=== PATIENT | male | born 1970 | race Caucasian/White ===

== ENCOUNTER 2023-03-11 20:51 | Emergency (ER) | payer OTHER, SELFPAY ==
--- NOTE | ~2023-03-11 | XR_ITS ---
EXAMINATION: XR chest 2V DATE: 03/11/2023 21:16 INDICATION: Cough. TECHNIQUE: Frontal and lateral views of the chest were obtained. COMPARISON: CT abdomen and pelvis 05/30/2018 FINDINGS: There is no pneumonia, pleural effusion, or pneumothorax. The heart size is normal. IMPRESSION: 1. No acute cardiopulmonary disease. Reviewed, dictated and finalized at location E. UMER PRODUCT ADVISOR
[2023-03-11 20:53] VITALS: BP 163/93; PULSE 88; RESP 20; TEMP 36.1; O2SAT 96
[2023-03-11 21:39] LABS: Influenza A QL RT-PCR Negative (Negative); Influenza B QL RT-PCR Negative (Negative); RSV RNA, RT-PCR Negative (Negative); SARS-CoV-2 RNA PCR Negative (Negative)
--- NOTE | 2023-03-11 23:04 | ED.URI ---
HPI - URI/Sore Throat General Chief Complaint: Upper Respiratory Infection Stated Complaint: chest congestion, cough Time Seen by Provider: 03/11/23 22:25 History of Present Illness HPI Narrative: 52 y/o M with a hx of HTN reports for evaluation for sinus congestion, chest congestion, and productive cough x5-7 days. Pt states today it feels like there is more congestion in his lungs and feels like he cannot fully cough it up. He denies sensation of a food bolus. He denies fever, otalgia, sore throat, abdominal pain, n/v/d. The patient is also reporting pain to his L inferior lateral ribs that started today, is only present with coughing, and is pinpoint and nonradiating. States he believes he pulled a rib from coughing. No aggravating or alleviating factors other than deep inspiration. No associated diaphoresis, n/v. He is not a smoker. No hx of asthma or COPD Related Data Allergies Allergy/AdvReac Type Severity Reaction Status Date / Time No Known Allergies Allergy Unverified 03/11/23 20:58 Review of Systems Review of Systems: CONSTITUTIONAL: Denies fever, chills, or sweats. EYES: Denies visual changes, redness, or discharge. ENT: See HPI CARDIOVASCULAR: See HPI RESPIRATORY: See HPI GASTROINTESTINAL: Denies abdominal pain, nausea, vomiting, or diarrhea. GENITOURINARY: Denies dysuria or hematuria. SKIN: Denies rash or itching. MUSCULOSKELETAL: Denies back pain, joint pain, or myalgia. NEUROLOGIC: Denies headache, numbness, or weakness. PSYCHIATRIC: Denies anxiety or depression. Exam Narrative: GENERAL: Well-appearing, well-nourished, and in no acute distress. Patient resting comfortably in exam bed. He is pleasant and conversational. HEAD: Normocephalic, atraumatic. EYES: PERRLA and EOMI. ENT: Nares clear, no rhinorrhea or epistaxis. Mucous membranes moist. Bilateral TMs are horne nonbulging. Normal canals. Posterior pharynx with mild erythema. No tonsillar hypertrophy or exudates. Uvula is midline. Postnasal drainage present. NECK: Supple. CHEST: Clear to auscultation. No respiratory distress. HEART: Regular rate and rhythm. No murmur heard. Normal peripheral pulses. ABDOMEN: Soft, nontender, nondistended, normal active bowel sounds. EXTREMITIES: Normal range of motion. No edema. SKIN: Warm, dry, no rash. NEURO: No focal deficits. Alert and oriented x3 Course Vital Signs Vital signs: Vital Signs Temperature 97 F L 03/11/23 20:53 Pulse Rate 88 03/11/23 20:53 Respiratory Rate 20 03/11/23 20:53 Blood Pressure 163/93 H 03/11/23 20:53 Pulse Oximetry 96 03/11/23 20:53 Oxygen Delivery Room Air 03/11/23 20:53 Temperature 97.8 F 03/11/23 23:26 Pulse Rate 91 03/11/23 23:26 Respiratory Rate 22 H 03/11/23 23:26 Blood Pressure 146/88 H 03/11/23 23:26 Pulse Oximetry 96 03/11/23 23:26 Oxygen Delivery Room Air 03/11/23 23:25 MDM - URI/Sore Throat MDM Narrative Medical decision making narrative: 52-year-old male reports for evaluation for sinus and chest congestion for the past 5-7 days. He is also reporting pinpoint left inferior lateral rib pain that he is attributing to a pulled muscle from coughing. Vital significant for blood pressure 163/93. He is afebrile and satting 96% on room air. No respiratory distress. Exam significant for the above. Lungs sounds are clear. COVID, flu and RSV are negative. Chest x-ray shows no acute cardiopulmonary abnormality. Labs and imaging discussed with the patient. Shared decision making regarding obtaining further workup including cardiac workup, VTE and other given left-sided chest pain. He declines and states he would like to go home. Chest pain does not seem cardiac in nature given it is pinpoint, non radiatin, only present with deep inspiration. I discussed strict ED return precautions including signs/symptoms of ACS, PE, PNA, other and encouraged close PCP follow up. Patient is agreeable to plan and voiced his understanding.
[2023-03-11 23:25] VITALS: O2SAT 96
[2023-03-11 23:26] VITALS: BP 146/88; PULSE 91; RESP 22; TEMP 36.6; O2SAT 96
== END 2023-03-11 23:27 | disposition home or self-care (01) ==
PROVIDERS: Student in an Organized Health Care Education/Training Program; Emergency Provider Physician Assistant
DX: J06.9 Acute upper respiratory infection, unspecified (principal); R07.89 Other chest pain; Z20.822 Contact with and (suspected) exposure to COVID-19
CPT/HCPCS: 71046; 87637; 99283

== ENCOUNTER 2024-06-24 15:57 | Emergency (ER) | payer OTHER, SELFPAY ==
--- NOTE | ~2024-06-24 | XR_ITS ---
HISTORY: [email or web address] COMPARISON: None TECHNIQUE: 3 views of the left ankle were performed FINDINGS: No acute fracture or dislocation. No significant soft tissue swelling. The ankle mortise is preserved. Bone mineralization is age-appropriate. Ossification of the insertion of the Achilles tendon is present. IMPRESSION: Degenerative disease without acute fracture Reviewed, dictated and finalized at location A.
--- NOTE | ~2024-06-24 | XR_ITS ---
HISTORY: [email or web address] COMPARISON: None TECHNIQUE: 3 views of the left foot were performed. FINDINGS: No acute fracture or dislocation is appreciated. No significant degenerative disease is noted. The base of the fifth metatarsal is intact. No calcaneal spur is noted. Ossification of the insertion of the Achilles tendon is present. No significant soft tissue swelling is present. IMPRESSION: Degenerative disease without acute fracture identified. Reviewed, dictated and finalized at location A.
--- OUTSIDE RECORDS SUMMARY | 2024-06-24 16:00 | XMS_ITS | Clinical Summary ---
Author Organization [facility] Address [facility] [place] [address] Care Team Providers Care Electrical Instrument Maker Name Role Phone None, Provider MD Primary Care Provider Unavaila ble Allergies No known active allergies Medications anastrozole (ARIMIDEX) 1 MG tablet TAKE 1 TABLET BY MOUTH 3 TIMES PER WEEK 01/12/20 24 Active propranolol (INDERAL) 20 MG tablet Take 1 tablet (20 mg total) by mouth 3 (three) times daily. 01/06/20 24 Active testosterone cypionate (DEPO TESTOSTERONE) 200 MG/ML injection INJECT 1.25ML INTRAMUSCULARLY EVERY 7 DAYS *BOTTLE HAS TO BE REPLACED AFTER 28 DAYS 01/25/20 24 Active azithromycin (ZITHROMAX) 250 MG tabletIndicati ons:Non-recurr ent acute serous otitis media of both ears,Bronchiti s Take 2 tablets by mouth on day one then 1 daily for four days. 6 tablet 02/24/20 24 Active Active Problems No known active problems Immunizations Immunization Administration Dates Next Due Influenza (Generic) 03/09/2013 Social History Tobacco Use Types Packs/Day Years Used Date Smoking Tobacco: Never Smokeless Tobacco: Never Tobacco Cessation:Counseling Given: Not Answered Alcohol Use Standard Drinks/Week Comments Not Currently 0 (1 standard drink = 0.6 oz pur e alcohol) Sex and Gender Information Value Date Recorded Sex Assigned at Not on file Legal Sex Male 7:45 PM CDT Gender Identity Not on file Sexual Orientation Not on file Last Filed Vital Signs Vital Sign Reading Time Taken Comments Blood Pressure 136/85 02/24/2024 1:33 PM TRANSFER AND PUMPHOUSE OPERATOR Pulse 73 02/24/2024 1:33 PM TRANSFER AND PUMPHOUSE OPERATOR Temperature 37.2 C (98.9 F) 02/24/2024 1:33 PM TRANSFER AND PUMPHOUSE OPERATOR Respiratory Rate 18 02/24/2024 1:33 PM TRANSFER AND PUMPHOUSE OPERATOR Oxygen Saturation 96% 02/24/2024 1:33 PM TRANSFER AND PUMPHOUSE OPERATOR Inhaled Oxygen Concentration - - Weight 133.5 kg (294 lb 6.4 oz) 02/24/2024 1:33 PM TRANSFER AND PUMPHOUSE OPERATOR Height 180.3 cm (5' 11 ) 02/24/2024 1:33 PM TRANSFER AND PUMPHOUSE OPERATOR Body Mass Index 41.06 02/24/2024 1:33 PM TRANSFER AND PUMPHOUSE OPERATOR Plan of Treatment Health Maintenance Due Date Last Done Comments Colorectal Cancer Screening Colonoscopy (10 Years) 1971 Annual Physical 1974 Hepatitis C 1989 DTaP, Tdap and Td Vaccines ( 1 - Tdap) 1990 Hepatitis B Vaccines (1 of 3 - 19+ 3-dose series) 1990 Pneumococcal Vaccine: 50+ Years (1 of 1 - PCV) 2021 Zoster Vaccines (1 of 2) 2021 COVID-19 Vaccine (3 - 2023-2 5 season) 2023 03/03/2021, 06/16/2020 PHQ-2 (Physician [place]) 03/09/2024 Meningococcal B Vaccine Aged Out No l onger eligible based on patient's age to complete this topic Meningococcal Vaccine Aged Out No kaveh fifi eligible based on patient's age to complete this topic RSV Immunizations Under 20 Months Aged Out No longer eligible b ased on patient's age to complete this topic Insurance Care Teams Electrical Instrument Maker Relationship Specialty Start Date End Date None, Provider, MD PCP - General UNKNOWN PHYSICIAN SPECIALTY 02/24/24
--- OUTSIDE RECORDS SUMMARY | 2024-06-24 16:00 | XMS_ITS | Continuity of Care Document ---
Author Organization [facility] Address [address] [place] [address] Phone Care Team Providers Care Pcas Name Role Phone Everardo Soler MD Unavailable Unavailable Advance Directives Directive Yes / No Effective Date File Name No Information Encounters Encounter Description Practice Location Reason(s) For Visit Diagnoses Date Provider Providers Copied on Encounter [facility], [address], [place], [place], [id number], [place] tel:[phone] [facility] No Information Ryder Mcgee. [address], [address], [place], [place], [address] , [place]. tel:[phone] Family History Family Member Type Diagnosis Age At Onset No Information Payers Payer name Insurance type Covered republican ID Authoriza tion(s) No Information Social History Type Description Quantity Date Captured Comments Sex Male Smoking Status No Information Chief Complaint And Reason For Visit No Information Reason For Referral Reason For Referral No Information History Of Present Illness Encounter Date Complaint History Of Prese nt Illness No Information Functional Status Date Functional Assessmen t No Information Instructions Date Instruction Additional Infor mation No Information Assessments Type Assessment Date No Information Patient Care Teams Name Effective Dates (start - stop) Status Members No Information
--- OUTSIDE RECORDS SUMMARY | 2024-06-24 16:00 | XMS_ITS | Clinical Summary ---
Author Organization [facility] Address [address] [place] [address] Care Team Providers Care Fractionating Still Operator Name Role Phone Unknown, Provider Primary Care Provider Unavaila ble Source Comments [facility],non-owned Affiliates and Associated Physician Practices is amultiple site organization consisting of ambulatory clinics and hospital sitesin [place], [place], [place] and [place]. This disclosure is being madepursuant to the Care Everywhere program and may not contain all information available regarding this patient. Last updated 17.[facility] Allergies No known active allergies Medications * Be aware that medications may not be up to date on this document. Alwaysverify current medications with the patient. clomiPHENE (CLOMID) 50 MG tablet Take 50 mg by mouth once daily Active Ergocalciferol 10 MCG (400 UNIT) Active testosterone 0.2% in DERMABASE OINT Apply to affected area once daily Active Other Active Social History Tobacco Use Types Packs/Day Years Used Date Smoking Tobacco: Never Smokeless Tobacco: Never Sex and Gender Information Value Date Recorded Sex Assigned at Not on file Legal Sex Male 7:59 AM SCHOOL CURRICULUM DEVELOPER Gender Identity Not on file Sexual Orientation Not on file Last Filed Vital Signs Vital Sign Reading Time Taken Comments Blood Pressure 122/82 05/09/2019 9:40 AM SCHOOL CURRICULUM DEVELOPER Pulse 93 05/09/2019 9:40 AM SCHOOL CURRICULUM DEVELOPER Temperature 37.3 C (99.2 F) 05/09/2019 9:40 AM SCHOOL CURRICULUM DEVELOPER Respiratory Rate 16 05/09/2019 9:40 AM SCHOOL CURRICULUM DEVELOPER Oxygen Saturation 98% 05/09/2019 9:40 AM SCHOOL CURRICULUM DEVELOPER Inhaled Oxygen Concentration - - Weight 129.7 kg (286 lb) 05/09/2019 9:40 AM SCHOOL CURRICULUM DEVELOPER Height 180.3 cm (5' 11 ) 05/09/2019 9:40 AM SCHOOL CURRICULUM DEVELOPER Body Mass Index 39.89 05/09/2019 9:40 AM SCHOOL CURRICULUM DEVELOPER Plan of Treatment Health Maintenance Due Date Last Done Comments COLOGUARD (AGES 45-75) - COL ON CA SCREENING 1971 COLON MONITORING 1971 COLONOSCOPY - COLON CA SCREENING 1971 CT COLONOGRAPHY - COLON CA SCREENING 1971 Colorectal Cancer Screening 1971 FIT - COLON CA SCREENING 1971 FLEX SIG - COLON CA SCREENING 1971 LIPID TESTING 1971 HIV SCREENING 1986 HEPATITIS C SCREENING 04/18/1989 DTAP/TDAP/TD VACCINES (1 - Tdap) 1990 HEPATITIS B VACCINE (1 of 3 - 19+ 3-dose series) 1990 SCREENING FOR DIABETES 05/09/2019 PNEUMOCOCCAL VACCINE 50+ (1 of 1 - PCV) 2021 ZOSTER VACCINE (1 of 2) 2021 COVID-19 VACCINE (1 - 2023-2 5 season) 2023 DEPRESSION SCREENING 03/09/2024 INFLUENZA VACCINE (Season Ended) 2024 HIB VACCINE Aged Out No longer eligi ble based on patient's age to complete this topic HPV VACCINE Aged Out No longer eligi ble based on patient's age to complete this topic MENINGOCOCCAL (Group B) VACC INE SHARED DECISION-MAKING Aged Out No longer eligibl e based on patient's age to complete this topic MENINGOCOCCAL GROUPS A/C/Y/W VACCINE Aged Out No longer eligible b ased on patient's age to complete this topic Insurance [facility] Address: [facility] [id number] [place] [phone] Care Teams Fractionating Still Operator Relationship Specialty Start Date End Date Unknown, Provider PCP - General 05/09/19
--- OUTSIDE RECORDS SUMMARY | 2024-06-24 16:00 | XMS_ITS | Patient Health Record ---
Author Organization [employer] Address [address] [place]. [address] [place] [address] Care Team Providers Care Injection Molding Machine Tender Name Role Phone Dk Callejas MD Primary Care Provider UnavailJerome Jackson Unavailable [phone] Reason For Referral No Information Plan Of Treatment No Information Insurance Providers Payer Name Payer Address Payer Phone Subscriber Number Group Number Insured Name Patient Relationship to Insured Coverage Start Date Coverage End Date [employer] Open Access Plus [address] [place] [address] [phone] [id number] Jim Carter Self - patient is the insured
--- OUTSIDE RECORDS SUMMARY | 2024-06-24 16:00 | XMS_ITS | Clinical Summary ---
Author Organization [facility] [place] [address] Care Team Providers Care Mainframe Consultant Name Role Phone Unavailable Primary Care Provider Unavailabl e Allergies No known active allergies Medications testosterone cypionate (DEPO-TESTOSTERO NE) 200 mg/mL Oil INJECT 1ML IN THE MUSCLE EVERY WEEK 04/29/2020 Active anastrozole (ARIMIDEX) 1 mg tablet TAKE ONE TABLET BY MOUTH 3 DAYS EACH WEEK 05/28/2022 Active clomiPHENE citrate (CLOMID) 50 mg tablet Take 50 mg by mouth. 03/06/2020 Active propranoloL (INDERAL) 20 mg tablet 06/19/2022 Active methocarbamoL (ROBAXIN) 500 mg tablet TAKE 1 TABLET BY MOUTH FOUR TIMES A DAY X10 DAYS 40 Tablet 08/17/2023 Active Active Problems No known active problems Encounters Date Type Department Care Team Description 05/25/2024 External Device Data [facility] ABSTRACTION Provider, Abstract 05/18/2024 External Device Data [facility] Provider, Abstract 05/17/2024 External Device Data [facility] Provider, Abstract 05/14/2024 External Device Data [facility] Provider, Abstract 05/13/2024 External Device Data [facility] Provider, Abstract 05/03/2024 External Device Data [facility]CTION Provider, Abstract 04/12/2024 External Device Data [facility]CTION Provider, Abstract 04/12/2024 External Device Data [facility] ABSTRACTION Provider, Abstract 04/12/2024 External Device Data [facility] ABSTRACTION Provider, Abstract from Last 3 Months Social History Tobacco Use Types Packs/Day Years Used Date Smoking Tobacco: Never Smokeless Tobacco: Never Alcohol Use Standard Drinks/Week Comments Yes 0 (1 standard drink = 0.6 oz pur e alcohol) Occasional Sex and Gender Information Value Date Recorded Sex Assigned at Not on file Legal Sex Male 12:39 PM MECHANICAL MANAGER Gender Identity Not on file Sexual Orientation Not on file Last Filed Vital Signs Vital Sign Reading Time Taken Comments Blood Pressure 132/87 06/21/2022 9:12 AM CDT Pulse 68 06/21/2022 9:12 AM CDT Temperature - - Respiratory Rate - - Oxygen Saturation - - Inhaled Oxygen Concentration - - Weight 129.3 kg (285 lb) 08/17/2023 3:50 PM CDT Height 180.3 cm (5' 11 ) 08/17/2023 3:50 PM CDT Body Mass Index 39.75 08/17/2023 3:50 PM CDT Plan of Treatment Health Maintenance Due Date Last Done Comments Pre-Diabetes and Diabetes Screening 1971 DTAP/TDAP/TD VACCINES (1 - Tdap) 1990 HEPATITIS B VACCINES (1 of 3 - 19+ 3-dose series) 1990 COLORECTAL SCREENING 2016 Colorectal Cancer Screening 2016 FIT-DNA Q 3 years 2016 FIT/FOBT Q 1 year 2016 Flex Sig/CT Colonography Q 5 years 2016 ZOSTER VACCINE (1 of 2) 2021 INFLUENZA VACCINE (#1) 2023 03/09/2013 PNEUMOCOCCAL VACCINE 0-49 YEARS Aged Out No longer eligible based on patient's age to complete this topic [facility]
[2024-06-24 16:02] VITALS: BP 159/97; PULSE 86; RESP 18; TEMP 37; O2SAT 98
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
--- OUTSIDE RECORDS SUMMARY | 2024-06-24 18:00 | XMS_ITS | Clinical Summary ---
Author Organization [facility] [place] [address] Care Team Providers Care Sack Repairer Name Role Phone Unavailable Primary Care Provider [...] on file Legal Sex Male 12:39 PM DIE MAINTENANCE Gender Identity Not on file Sexual Orientation [...] patient's age to complete this topic [facility]
--- OUTSIDE RECORDS SUMMARY | 2024-06-24 18:00 | XMS_ITS | Continuity of Care Document ---
Author Organization [facility] Address [address] [place] [address] Phone Care Team Providers Care Grain Manager Name Role Phone Everardo Soler MD Unavailable Unavailable Advance Directives Directive Yes / No Effective Date File Name No Information Encounters Encounter Description Practice Location Reason(s) For Visit Diagnoses Date Provider Providers Copied on Encounter [facility], [address] [address] [facility], [place], [place], [id number], [place] tel:[phone] [facility] No Information Ryder Mcgee. [address], [address], [place], [place], [address] , [place]. tel:[phone] Family History Family Member Type Diagnosis Age At Onset No Information Payers Payer name Insurance type Covered alliance party ID Authoriza tion(s) No Information Social History [...]
--- OUTSIDE RECORDS SUMMARY | 2024-06-24 18:00 | XMS_ITS | Clinical Summary ---
Author Organization [facility] Address [facility] [place] [address] Care Team Providers Care Sod Farmer Name Role Phone None, Provider MD Primary [...] Comments Blood Pressure 136/85 02/24/2024 1:33 PM RADIO DISPATCHER Pulse 73 02/24/2024 1:33 PM RADIO DISPATCHER Temperature 37.2 C (98.9 F) 02/24/2024 1:33 PM RADIO DISPATCHER Respiratory Rate 18 02/24/2024 1:33 PM RADIO DISPATCHER Oxygen Saturation 96% 02/24/2024 1:33 PM RADIO DISPATCHER Inhaled Oxygen Concentration - - Weight 133.5 kg (294 lb 6.4 oz) 02/24/2024 1:33 PM RADIO DISPATCHER Height 180.3 cm (5' 11 ) 02/24/2024 1:33 PM RADIO DISPATCHER Body Mass Index 41.06 02/24/2024 1:33 PM RADIO DISPATCHER Plan of Treatment Health Maintenance Due Date [...] 5 season) 2023 03/03/2021, 06/16/2020 PHQ-2 (Physician [place]) 03/09/2024 Meningococcal B Vaccine Aged Out No l onger eligible based on patient's age to complete this topic Meningococcal Vaccine Aged Out No kaveh fifi eligible based on patient's age to complete this topic RSV Immunizations Under 20 Months Aged Out No longer eligible b ased on patient's age to complete this topic Insurance Care Teams Sod Farmer Relationship Specialty Start Date End Date None, Provider, MD PCP - General UNKNOWN PHYSICIAN SPECIALTY 02/24/24
--- OUTSIDE RECORDS SUMMARY | 2024-06-24 18:00 | XMS_ITS | Clinical Summary ---
Author Organization [facility] Address [address] [place] [address] Care Team Providers Care Bookkeeping Clerk Name Role Phone Unknown, Provider Primary Care Provider Unavaila ble Source Comments [facility],non-owned Affiliates and Associated Physician Practices is amultiple site organization consisting of ambulatory clinics and hospital sitesin [place], [place], [place] and [place]. This disclosure is being madepursuant to the Care Everywhere program and may not contain all information available regarding this patient. Last updated 17.[facility] Allergies No known active allergies Medications * [...] on file Legal Sex Male 7:59 AM GAS UTILITY WORKER Gender Identity Not on file Sexual Orientation Not on file Last Filed Vital Signs Vital Sign Reading Time Taken Comments Blood Pressure 122/82 05/09/2019 9:40 AM GAS UTILITY WORKER Pulse 93 05/09/2019 9:40 AM GAS UTILITY WORKER Temperature 37.3 C (99.2 F) 05/09/2019 9:40 AM GAS UTILITY WORKER Respiratory Rate 16 05/09/2019 9:40 AM GAS UTILITY WORKER Oxygen Saturation 98% 05/09/2019 9:40 AM GAS UTILITY WORKER Inhaled Oxygen Concentration - - Weight 129.7 kg (286 lb) 05/09/2019 9:40 AM GAS UTILITY WORKER Height 180.3 cm (5' 11 ) 05/09/2019 9:40 AM GAS UTILITY WORKER Body Mass Index 39.89 05/09/2019 9:40 AM GAS UTILITY WORKER Plan of Treatment Health Maintenance Due Date [...] patient's age to complete this topic Insurance [facility] Care Teams Bookkeeping Clerk Relationship Specialty Start Date End Date Unknown, Provider PCP - General 05/09/19
== END 2024-06-24 18:24 | disposition home or self-care (01) ==
LOC: ANHED 17:58
PROVIDERS: Emergency Provider Physician Assistant
DX: S93.602A Unspecified sprain of left foot, initial encounter (principal); V28.49XA Other motorcycle driver injured in noncollision transport accident in traffic accident, initial encounter
CPT/HCPCS: 73610; 73630; 99283